=== PATIENT | female | born 1995 | race Caucasian/White ===

== ENCOUNTER 2018-11-30 19:38 | Emergency (ER) | payer MEDICAID ==
[~2018-11-30] VITALS: Ht 162.6 cm; Wt 79.4 kg
[2018-11-30 19:42] VITALS: BP 124/81
--- NOTE | 2018-11-30 19:42 | NUR ---
TO BED #07 AMBULATORY, REPORT GIVEN TO LISSY GOEL
--- NOTE | 2018-11-30 19:55 | NUR ---
PT BIB MOTHER C/O H/A, N/V/D X2 DAYS. PT STATES VOMITING 3-4X A DAY FOR THE PAST 2 DAYS AFTER EATING OR COUGHING, NO BLOOD NOTED BY PT. PT STATES DIARREAH STARTED TODAY NOT BLOOD NOTED BY PT. PT STATES SHE IS CURRENTLY ON HER MENSTRAL CYCLE, PT STATES SHE DOES NOT REMEBER TAKING OUT ONE OF HER TAMPONS SHE USED 2 DAYS AGO AND WANTS TO MAKE SURE IT IS NOT IN HER VAGINA. RLQ PAIN, +REBOUND TENDERNESS; 2/10 CRAMPING PAIN. SKIN WARM, DRY AND INTACT. AAOX4. PMH: DENIES RX: DENIES
--- NOTE | 2018-11-30 20:21 | NUR ---
Dr. Lopez evaluating patient at bedside.
[2018-11-30] MEDS ORDERED: ACETAMIN/CODEINE 120/12MG-5ML 5 ML UDC PO ONE (20:40)
[2018-11-30] MEDS ORDERED: ONDANSETRON 4 MG ODT PO ONE (20:40)
--- NOTE | 2018-11-30 20:45 | NUR ---
X-Ray at bedside.
--- NOTE | 2018-11-30 20:59 | NUR ---
FLU SWAB COLLECTED, PT TOLERATED WELL.
--- NOTE | 2018-11-30 21:40 | NUR ---
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
[2018-11-30 22:15] VITALS: BP 118/80
--- NOTE | 2018-11-30 22:15 | NUR ---
Patient discharged with v/s stable. Written and verbal after care instructions given and explained. Patient alert, oriented and verbalized understanding of instructions. Ambulatory with steady gait. All questions addressed prior to discharge. ID band removed. Patient advised to follow up with PMD. Rx of GUAIATUSSIN given. Patient educated on indication of medication including possible reaction and side effects. Opportunity to ask questions provided and answered.
== END 2018-11-30 22:15 | disposition home or self-care (01) ==
LOC: MED 19:38
DX: J20.9 Acute bronchitis, unspecified (principal); R11.2 Nausea with vomiting, unspecified
CPT/HCPCS: 71045; 81002; 81025; 87804; 99284; Q0092; Q0162

== ENCOUNTER 2020-10-07 07:40 | Emergency (ER) | payer MEDICAID ==
[~2020-10-07] VITALS: Ht 162.6 cm; Wt 83.5 kg
[2020-10-07 07:52] VITALS: BP 152/59
--- NOTE | 2020-10-07 07:59 | NUR ---
PT TAKEN TO BED 12.
--- NOTE | 2020-10-07 08:14 | NUR ---
Received care of 25 y/o female coming from home c/o left lower quad pain x 2 days 5/10 cramping pain. No nausea, no vomiting, no diarrhea, no constipation. Pt reports being lightheaded. No Med Hx, NKA.
[2020-10-07 09:31] LABS: BASOPHILS # (AUTO) 0.1 K/uL (0.00-0.22); BASOPHILS % (AUTO) 0.8 % (0.0-2.0); EOSINOPHILS # (AUTO) 0.2 K/uL (0-0.4); EOSINOPHILS % (AUTO) 2.7 % (0.0-4.0); HEMATOCRIT 41.1 % (36-48); HEMOGLOBIN 13.6 g/dL (12.0-16.0); LYMPHOCYTES # (AUTO) 1.9 K/uL (2.5-16.5); LYMPHOCYTES % (AUTO) 24.4 % (20.5-51.1); MEAN CORPUSCULAR HEMOGLOBIN 29 pg (27-31); MEAN CORPUSCULAR HGB CONC 33 g/dL (33-37); MEAN CORPUSCULAR VOLUME 86.8 fL (80-94); MONOCYTES # (AUTO) 0.6 K/uL (0.8-1.0); MONOCYTES % (AUTO) 8.1 % (1.7-9.3); PLATELET COUNT (AUTO) 267 K/uL (140-450); RED BLOOD CELL COUNT(AUTO) 4.73 MIL/uL (4.20-5.40); RED CELL DISTRIBUTION WIDTH 14.7 % (11.6-13.7); WHITE BLOOD COUNT (AUTO) 7.8 K/uL (4.8-10.8)
[2020-10-07 09:45] LABS: APPEARANCE,URINE SL CLOUDY (CLEAR); BILIRUBIN,URINE 1+ (NEGATIVE); BLOOD, URINE NEGATIVE (NEGATIVE); COLOR,URINE YELLOW (YELLOW); LEUKOCYTE ESTERASE ,URINE NEGATIVE (NEGATIVE); NITRITE, URINE NEGATIVE (NEGATIVE); UGLUCOSE NEGATIVE (NEGATIVE)
[2020-10-07 11:17] VITALS: BP 149/61
--- NOTE | 2020-10-07 11:19 | NUR ---
cleared for d/c by DR Fuentes; dc with instructions on Abdominal pain during ; pt fully understands all materials given re c/c; has no further questions; aox4; VSS; ambulatory with steady gait; no signs of acute distress
== END 2020-10-07 11:19 | disposition home or self-care (01) ==
LOC: MED 07:40
DX: O26.891 Other specified pregnancy related conditions, first trimester (principal); R10.32 Left lower quadrant pain; F17.210 Nicotine dependence, cigarettes, uncomplicated
CPT/HCPCS: 36415; 76817; 81003; 81025; 84702; 85025; 86900; 86901; 99284

== ENCOUNTER 2021-01-14 12:40 | Emergency (ER) | payer MEDICAID ==
[~2021-01-14] VITALS: Ht 162.6 cm; Wt 83.9 kg
--- NOTE | 2021-01-14 12:45 | NUR ---
AMBULATED TO BED 1
[2021-01-14 12:48] VITALS: BP 129/60
--- NOTE | 2021-01-14 12:55 | NUR ---
26/F PRESENTS TO ED WITH C/O SORE THROAT AND HEADACHE SINCE LAST NIGHT. PATIENT STATES HER SON WAS DIAGNOSED WITH STREP THROAT 3 DAYS AGO AND SHE THINKS SHE MAY HAVE GOTTEN IT FROM HIM. PATIENT DESCRIBES THE PAIN "5/10 SHARP/BURNING PAIN" STATES SHE TOOK TYLENOL AT 10:30 THIS MORNING WITH SOME RELIEF. THROAT AREA IS TENDER TO TOUCH. PATIENT REPORTS SHE IS CURRENTLY 19 WEEKS , DENIES ANY ABDOMINAL PAIN, NAUSEA/VOMITING/DIARRHEA.
--- NOTE | 2021-01-14 13:06 | NUR ---
WEN Hidalgo is evaluating the patient at bedside.
[2021-01-14] MEDS ORDERED: ACET-2619 PO (13:17)
[2021-01-14 13:26] VITALS: BP 129/60
--- NOTE | 2021-01-14 13:26 | NUR ---
Patient discharged with v/s stable. Written and verbal after care instructions given and explained. Patient alert, oriented and verbalized understanding of instructions. Ambulatory with steady gait. All questions addressed prior to discharge. ID band removed. Patient advised to follow up with PMD. Rx of Acetaminohphen given. Patient educated on indication of medication including possible reaction and side effects. Opportunity to ask questions provided and answered.
== END 2021-01-14 13:26 | disposition home or self-care (01) ==
LOC: MED 12:40
DX: J02.9 Acute pharyngitis, unspecified (principal); Z79.899 Other long term (current) drug therapy
CPT/HCPCS: 99282

== ENCOUNTER 2021-04-17 06:15 | Emergency (ER) | payer MEDICAID ==
[~2021-04-17] VITALS: Ht 160 cm; Wt 88.5 kg
[2021-04-17 06:15] VITALS: BP 127/62
[~2021-04-17 06:15] MED LIST: ACET-2619 PO
[2021-04-17] MEDS ORDERED: BENZ1LOZ98 PO (07:11)
[2021-04-17] MEDS ORDERED: AMOX-1000 PO (07:11)
--- NOTE | 2021-04-17 07:30 | NUR ---
LEFT EAR PAIN, SORETHROAT, FEVER, NASAL CONESTION SHE TOOK TYLENOL AT 0400HOURS, 34 WEEKS, LMP DEC
--- NOTE | 2021-04-17 08:00 | NUR ---
COVID SWAB DONE.
--- NOTE | 2021-04-17 08:03 | NUR ---
Patient discharged with v/s stable. Written and verbal after care instructions given and explained. Patient alert, oriented and verbalized understanding of instructions. Ambulatory with steady gait. All questions addressed prior to discharge. ID band removed. Patient advised to follow up with PMD. Rx of AUGMENTIN & CEPACOL SORE THROAT LOZENGE given. Patient educated on indication of medication including possible reaction and side effects. Opportunity to ask questions provided and answered.
[2021-04-17 08:05] VITALS: BP 127/62
== END 2021-04-17 08:03 | disposition home or self-care (01) ==
LOC: MED 06:15
DX: H60.92 Unspecified otitis externa, left ear (principal); Z20.822 Contact with and (suspected) exposure to COVID-19; J02.9 Acute pharyngitis, unspecified; Z79.899 Other long term (current) drug therapy
CPT/HCPCS: 99283; U0003

== ENCOUNTER 2022-11-09 17:16 | Emergency (ER) | payer MEDICAID ==
[~2022-11-09] VITALS: Ht 162.6 cm; Wt 63.5 kg
[~2022-11-09 17:16] MED LIST changes: +AMOX-1000 PO; +BENZ-300 PO
[2022-11-09 17:21] VITALS: BP 139/72
--- NOTE | 2022-11-09 17:29 | NUR ---
27/F WALKED IN C/O RIGHT SHOULDER PAIN S/P FALL AFTER ROLLER SKATING. PT REPORTS FALLING ON RIGHT SHOLDER. DENIES LOC OR TRAUMA TO HEAD. Hx-denies
[2022-11-09] MEDS ORDERED: IBUPROFEN 600 MG TAB PO ONE (17:30)
--- NOTE | 2022-11-09 17:38 | NUR ---
sling applied to r shoulder
[2022-11-09] MEDS ORDERED: IBUP-2213 PO (18:10)
== END 2022-11-09 18:25 | disposition home or self-care (01) ==
LOC: MED 17:16
DX: S43.101A Unspecified dislocation of right acromioclavicular joint, initial encounter (principal); R03.0 Elevated blood-pressure reading, without diagnosis of hypertension; W18.30XA Fall on same level, unspecified, initial encounter; Y93.89 Activity, other specified; Y92.89 Other specified places as the place of occurrence of the external cause; Y99.8 Other external cause status
CPT/HCPCS: 73030; 99283; Q0092